=== PATIENT | male | born 1995 | race Asian ===

== ENCOUNTER 2021-10-19 09:41 | Emergency (ER) | payer OTHER ==
[~2021-10-19] VITALS: Ht 170.2 cm; Wt 63.6 kg
[2021-10-19] MEDS ORDERED: LIDOCAINE 1% 10 ML VIAL ID ONE (12:45)
[2021-10-19 13:07] VITALS: BP 132/80
== END 2021-10-19 13:09 | disposition home or self-care (01) ==
LOC: EMS 09:41
DX: S63.280A Dislocation of proximal interphalangeal joint of right index finger, initial encounter (principal); W21.05XA Struck by basketball, initial encounter; Y93.67 Activity, basketball; Y92.89 Other specified places as the place of occurrence of the external cause; Y99.8 Other external cause status
CPT/HCPCS: 26770; 73130; 99284; J3490